=== PATIENT | male | born 1960 | race Caucasian/White ===

== ENCOUNTER 2018-12-26 06:40 | Day surgery (SDC) | payer OTHER ==
[~2018-12-26 06:40] MED LIST: FLOMAX0.4 MG PO; PROSCAR5 MG PO
[2018-12-26 08:11] VITALS: BP 124/81; BMI 31.3
--- NOTE | 2018-12-26 12:52 | OP ---
PATIENT NAME: ORALIA JORGENSEN MEDICAL RECORD: [id number] [facility] DATE: SURGEON: NICOLE HALL MD DATE OF OPERATION: 12/26/2018 SURGEON: Nicole Hall MD ANESTHESIA: TIVA by JASWINDER Johnson CRNA. DIAGNOSES: Obstructive benign prostatic hypertrophy. A 40 gram prostate on CARMEN, PSA 0.3, IPSS is 15 and quality of life score is 3 on finasteride and tamsulosin. PROCEDURE: UroLift times 4 in a box configuration. FINDINGS: Obstructive benign prostatic hypertrophy with overhanging anterior lobes. Bladder neck obstruction. ESTIMATED BLOOD LOSS: None. CLINICAL HISTORY: This is a 58-year-old male, who has obstructive BPH symptoms. He has been on tamsulosin and finasteride for over 1 year. He has a good urinary stream and nocturia of 0. He has no dizziness, but there is reduced ejaculatory volume from the tamsulosin. He has no changes in his short-term memory. With the 2 medications on board, his IPPS score is 15 and quality of life score is 3. His total PSA was 0.9 and free PSA was 0.3. He comes today to have the UroLift procedure done. He is not allergic to any medications. 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 DESCRIPTION OF PROCEDURE: The patient was given IV sedation. He was placed in dorsal lithotomy position. Going into the urethra, we found no penile urethral strictures. The prostatic urethra was obstructed by primarily lateral lobes hanging down from the anterior wall. A lot of the obstruction was also at the bladder neck level. I decided to place 4 units around the bladder neck in the box configuration. They were all placed about 1.5 cm distal to the bladder neck. Two anterior units were placed at the anterolateral sulcus on each side. The 2 posterior units were placed at the mid-level of the prostate. Looking at the prostatic urethra, it was quite open. The only thing that I had some doubt about was whether or not to put 2 more units at the level of the verumontanum. However, I will leave this for now and see how he fares with just 4 units. I will see him in followup in 1 months' time. TRANSINT:[id number] Voice Confirmation ID: [id number] DOCUMENT ID: [id number] NICOLE HALL MD at 1252 CC: [id number] DICTATION DATE: 12/26/18 1124 HELPDESK ANALYST: 12/26/18 1234 REG [place] [id number] [place] [id number]
--- NOTE | 2018-12-26 16:46 | NUR ---
1315 DRESSED. GIVEN DISCHARGE INSTRUCTIONS, UROLIFT PAMPHLET,, & UROLIFT D/C INSTRUCTIONS, MED REC, RTC APPT. & [facility] D/C INSTRUCTIONS. PT VOICED UNDERSTANDING. TO PRIVATE CAR PER WHEELCHAIR BY VOLUNTEER. HOME WITH MRS. JORGENSEN. Sybil NAPIER R.N.
== END 2018-12-26 13:15 | disposition home or self-care (01) ==
LOC: D.OPS 06:40 → D.PAN 09:00 → D.OPS 09:50 → D.PAN 09:50 → D.OPS 11:15 → D.PAN 11:15 → D.OPS 13:15
PROVIDERS: ATTEND Urology
DX: N40.1 Benign prostatic hyperplasia with lower urinary tract symptoms (principal); N13.8 Other obstructive and reflux uropathy; N32.0 Bladder-neck obstruction; Z01.812 Encounter for preprocedural laboratory examination